=== PATIENT | female | born 1935 | race Caucasian/White ===

== ENCOUNTER 2016-11-26 15:07 | Observation (INO) | payer OTHER ==
[~2016-11-26] VITALS: Ht 157.5 cm; Wt 60.0 kg
[2016-11-26] VITALS (7 sets, daily range): BP systolic 170–220; BP diastolic 77–115; PULSE 64–80; RESP 16–20; TEMP 97.5–98; O2SAT 93–99
[2016-11-26] MEDS ORDERED: SIMV20TA PO (15:19)
[2016-11-26] MEDS ORDERED: ASPI81CH CHEW (15:19)
[2016-11-26] MEDS ORDERED: MULTCAP (15:19)
--- NOTE | 2016-11-26 15:27 | PD ---
HPI Chief Complaint: Cardiac Complaint Time Seen by Provider: 15:24 Travel History International Travel<30 days: No Contact w/Intl Traveler<30days: No Traveled to known affect area: No History of Present Illness HPI 81-year-old female with history of breast cancer sent in from radiation oncology for slow heart rate. While receiving radiation therapy today patient' s heart rate was noted to be in the 30s. An EKG was performed that shows bigeminy with a very slow ventricular rate. Patient states that she is completely is symptomatic. No chest pain or dyspnea. No lightheadedness or weakness. No paresthesias or motor deficits. Upon arrival to the emergency Department in another EKG was performed and shows sinus with a rate of 81 with one PVC. She is not on any beta blockers or calcium channel blockers. PFSH Past Medical History Cancer: Yes (BREAST ) Radiation Therapy: Yes Influenza Vaccination: Yes Past Surgical History Tonsillectomy: Yes Other Surgery: Yes (R. L. BREAST LUMPECTOMY ) Social History Alcohol Use: Yes (1 RED WINE DAILY ) Tobacco Use: No Substance Use: No Allergies-Medications (Allergen,Severity, Reaction): Coded Allergies: No Known Allergies (Unverified , 11/26/16) Reported Meds & Prescriptions Reported Meds & Active Scripts Active Reported Aspirin 81 Mg Chew 81 Mg CHEW DAILY Multi For Her (Multiple Vitamins W/ Minerals) 1 Cap Cap Simvastatin 20 Mg Tab 30 Mg PO HS Review of Systems Except as stated in HPI: all other systems reviewed are Neg Physical Exam Narrative GENERAL: Pleasant, well-developed, well-nourished, no acute distress SKIN: Warm and dry. HEAD: Atraumatic. Normocephalic. EYES: Pupils equal and round. No scleral icterus. No injection or drainage. ENT: Mucous membranes pink and moist. NECK: Trachea midline. No JVD. CARDIOVASCULAR: Regular rate and rhythm. Distal pulses brisk and equal bilaterally. RESPIRATORY: No accessory muscle use. Clear to auscultation. Breath sounds equal bilaterally. GASTROINTESTINAL: Abdomen soft, non-tender, nondistended. MUSCULOSKELETAL: No obvious deformities. No clubbing. No cyanosis. No edema. NEUROLOGICAL: Awake and alert. No obvious cranial nerve deficits. Motor grossly within normal limits. Normal speech. PSYCHIATRIC: Appropriate mood and affect; insight and judgment normal. Data Data Last Documented VS Vital Signs Date Time Temp Pulse Resp B/P Pulse Ox O2 Delivery O2 Flow Rate FiO2 11/26/16 15:34 99 Room Air 11/26/16 15:12 98.0 80 20 184/115 Orders Electrocardiogram (11/26/16 ) Basic Metabolic Panel (Bmp) (11/26/16 15:24) Ckmb (Isoenzyme) Profile (11/26/16 15:24) Complete Blood Count With Diff (11/26/16 15:24) Magnesium (Mg) (11/26/16 15:24) Prothrombin Time / Inr (Pt) (11/26/16 15:24) Act Partial Throm Time (Ptt) (11/26/16 15:24) Troponin I (11/26/16 15:24) Chest, Single Ap (11/26/16 15:24) Ecg Monitoring (11/26/16 15:24) Iv Access Insert/Monitor (11/26/16 15:24) Oximetry (11/26/16 15:24) Sodium Chloride 0.9% Flush (Ns Flush) (11/26/16 15:30) Labs Laboratory Tests Test 11/26/16 15:27 White Blood Count 5.8 TH/MM3 Red Blood Count 4.89 MIL/MM3 Hemoglobin 15.7 GM/DL Hematocrit 45.9 % Mean Corpuscular Volume 93.8 FL Mean Corpuscular Hemoglobin 32.1 PG Mean Corpuscular Hemoglobin 34.2 % Concent Red Cell Distribution Width 14.0 % Platelet Count 190 TH/MM3 Mean Platelet Volume 10.3 FL Neutrophils (%) (Auto) 63.8 % Lymphocytes (%) (Auto) 17.4 % Monocytes (%) (Auto) 12.8 % Eosinophils (%) (Auto) 4.8 % Basophils (%) (Auto) 1.2 % Neutrophils # (Auto) 3.7 TH/MM3 Lymphocytes # (Auto) 1.0 TH/MM3 Monocytes # (Auto) 0.7 TH/MM3 Eosinophils # (Auto) 0.3 TH/MM3 Basophils # (Auto) 0.1 TH/MM3 CBC Comment DIFF FINAL Differential Comment Prothrombin Time 10.2 SEC Prothromb Time International 0.9 RATIO Ratio Activated Partial 25.0 SEC Thromboplast Time Sodium Level 142 MEQ/L Potassium Level 4.1 MEQ/L Chloride Level 104 MEQ/L Carbon Dioxide Level 32.0 MEQ/L Anion Gap 6 MEQ/L Blood Urea Nitrogen 17 MG/DL Creatinine 0.86 MG/DL Estimat Glomerular Filtration 63 ML/MIN Rate Random Glucose 83 MG/DL Calcium Level 9.9 MG/DL Magnesium Level 2.6 MG/DL Total Creatine Kinase 92 U/L Troponin I LESS THAN 0.02 NG/ML MDM Medical Decision Making Medical Screen Exam Complete: Yes Emergency Medical Condition: Yes Medical Record Reviewed: Yes Differential Diagnosis Sinus bradycardia, sick sinus syndrome, electrolyte abnormality Narrative Course Initial vital signs show heart rate 68, blood pressure 220/90, pulse ox 99% on room air, oral temp of 97.5F. Repeat blood pressure without any intervention was 184/115. CBC is unremarkable. BMP is unremarkable. Cardiac enzymes are negative. Case discussed with on-call livestock nutritionist Dr. Greenwood who reviewed the patient' s EKG showing bigeminy with a very slow ventricular rate. He recommends admitting the patient for overnight telemetry monitoring. Case discussed with hospitalist Dr. Bruce who will admit the patient to his service. The patient and the patient's significant other were made aware of all findings and plan for admission. Diagnosis Primary Impression: Bradycardia Admitting Information Admitting Physician Requests: Observation Ahsan Troncoso MD Nov 26, 2016 15:27
[2016-11-26] MEDS ORDERED: SODIUM CHLORIDE 0.9% FLUSH 5 ML FLUSH IVF PRN (15:30)
--- NOTE | 2016-11-26 15:59 | RADRPT ---
EXAM DATE/TIME: 11/26/2016 15:40 [facility] COMPARISON: No previous studies available for comparison. INDICATIONS : Low pulse sent by Oncology. MEDICAL HISTORY : Carcinoma, breast. SURGICAL HISTORY : lumpectomy bilateral breast, being treated for breast cancer now ENCOUNTER: Initial ACUITY: 1 day PAIN SCORE: 0/10 LOCATION: Bilateral chest FINDINGS: A single view of the chest demonstrates the lungs to be symmetrically aerated without evidence of mas s, infiltrate or effusion. The cardiomediastinal contours are unremarkable. Osseous structures are intact. CONCLUSION: No acute disease. Hoang Duarte MD on November 26, 2016 at 15:58 Board Certified Radiologist. This report was verified electronically.
[2016-11-26 16:01] LABS: AUTOMATED NEUTROPHIL # 3.7 TH/MM3 (1.8-7.7); BASOPHIL # 0.1 TH/MM3 (0-0.2); BASOPHIL % 1.2 % (0.0-2.0); EOSINOPHIL # 0.3 TH/MM3 (0-0.4); EOSINOPHIL % 4.8 % (0.0-4.0); HEMATOCRIT 45.9 % (35.0-46.0); HEMO FLAGS DIFF FINAL; LYMPH % 17.4 % (9.0-44.0); MEAN CELL VOLUME 93.8 FL (80.0-100.0); MEAN CORPUSCULAR HEMOGLOBIN 32.1 PG (27.0-34.0); MEAN CORPUSCULAR HGB CONC 34.2 % (32.0-36.0); MONO % 12.8 % (0.0-8.0); NEUT % 63.8 % (16.0-70.0); PLATELET COUNT 190 TH/MM3 (150-450); RED BLOOD COUNT 4.89 MIL/MM3 (4.00-5.30); WHITE BLOOD COUNT 5.8 TH/MM3 (4.0-11.0)
[2016-11-26 16:06] LABS: INTERNATIONAL NORMALIZED RATIO 0.9 RATIO; PROTHROMBIN TIME - PATIENT 10.2 SEC (9.8-11.6)
[2016-11-26 16:25] LABS: ANION GAP 6 MEQ/L (5-15); BLOOD UREA NITROGEN 17 MG/DL (7-18); CHLORIDE 104 MEQ/L (98-107); GLOMERULAR FILTRATION RATE 63 ML/MIN (>89); MAGNESIUM 2.6 MG/DL (1.5-2.5); POTASSIUM 4.1 MEQ/L (3.5-5.1); SODIUM (NA) 142 MEQ/L (136-145)
[2016-11-26 16:28] LABS: CREATINE KINASE 92 U/L (26-192)
--- NOTE | 2016-11-26 18:28 | HHI.HP ---
[facility] Service [facility] Primary Care Physician Carrie Flowers MD Admission Diagnosis bradycardia Diagnoses: Chief Complaint: bradycardia Travel History International Travel<30 Days: No Contact w/Intl Traveler <30 Da: No Traveled to Known Affected Are: No History of Present Illness 81-year-old female with history of breast cancer s/p R breast lumpectomy/ radiation 2001, now again left breast cancer s/p recent lumpectomy 2015 and started radiation, presents with bradycardia. The patient reports she completed her radiation treatment today, then went to meet with her radiation oncologist Dr. Ruiz when they found her heart to be around 30-31. EKG showed bigeminy with slow ventricular response. The patient is asymptomatic, denies feeling any lightheadedness, chest pain, palpations, or shortness of breath. She denies any history of bradycardia or any prior heart problems. She does not take any beta blockers or calcium channel blockers. Upon arrival to the ED, EKG showed sinus rhythm, rate 81, with 1 PVC. Heart rate now consistently in the 70s-80s. Cardiology Dr. Greenwood contacted from the ER who recommended observation overnight. Blood pressure also noted to be elevated in the ED, the patient reports her blood pressure is typically very low. She has no other medical complaints at this time. Review of Systems Constitutional: DENIES: Diaphoretic episodes, Fever, Chills, Dizziness Endocrine: DENIES: Polydipsia, Polyuria, Polyphagia Eyes: DENIES: Blurred vision, Eye pain, Double Vision Ears, nose, mouth, throat: DENIES: Throat pain, Ear Pain, Running Nose, Odynophagia Respiratory: DENIES: Cough, Shortness of breath Cardiovascular: DENIES: Chest pain, Palpitations, Dyspnea on Exertion, Lower Extremity Edema, Orthopnea Gastrointestinal: DENIES: Abdominal pain, Constipation, Diarrhea, Nausea, Vomiting Genitourinary: DENIES: Urinary frequency, Urgency, Dysuria Musculoskeletal: DENIES: Joint pain, Back pain, Neck pain Integumentary: DENIES: Abnormal pigmentation, Pruritus, Rash Hematologic/lymphatic: DENIES: Bruising, Lymphadenopathy Immunologic/allergic: DENIES: Eczema, Urticaria Neurologic: DENIES: Abnormal gait, Headache, Localized weakness, Paresthesias, Poor Balance Psychiatric: DENIES: Anxiety, Depression Past Family Social History Past Medical History hyperlipidemia right breast cancer s/p lumpectomy/radiation in 2001 new left breast cancer s/p lumpectomy 2016, now on radiation Past Surgical History right breast lumpectomy 2001 left breast lumpectomy 2016 tonsillectomy Reported Medications Aspirin 81mg daily, statin, multivitamin Allergies: Coded Allergies: No Known Allergies (Unverified , 11/26/16) Active Ordered Medications Current Medications Medications (Trade) Dose Ordered Sig/Jayson Route Start Time Stop Time Status Last Admin (NS Flush) 2 ml UNSCH PRN IVF 11/26/16 15:30 Family History Father with unknown cancer Mother with unknown medical problems Social History Smoked tobacco on the weekends in college however no other tobacco use Drinks 1 glass of wine most nights with dinner Denies any illicit drug use Physical Exam Vital Signs Vital Signs Date Time Temp Pulse Resp B/P Pulse Ox O2 Delivery O2 Flow Rate FiO2 11/26/16 15:34 99 Room Air 11/26/16 15:12 98.0 80 20 184/115 99 11/26/16 15:08 97.5 68 16 220/90 93 Room Air Physical Exam GENERAL: Well-nourished, well-developed pleasant elderly female patient in [facility]. SKIN: Warm and dry. No rash. HEAD: Normocephalic. Atraumatic. EYES: Pupils equal and round. No scleral icterus. No injection or drainage. ENT: No nasal bleeding or discharge. Mucous membranes pink and moist. NECK: Supple. Trachea midline. CARDIOVASCULAR: Regular rate and rhythm with occasional PVC. S1, S2 noted. No murmur appreciated. RESPIRATORY: No accessory muscle use. Clear to auscultation. Breath sounds equal bilaterally. GASTROINTESTINAL: Abdomen soft, non-tender, nondistended. Normoactive bowel sounds x4. MUSCULOSKELETAL: No obvious deformities. Extremities without clubbing, cyanosis , or edema. NEUROLOGICAL: Awake and alert. No obvious cranial nerve deficits. Motor grossly within normal limits. Normal speech. PSYCHIATRIC: Appropriate mood and affect; insight and judgment normal. Laboratory Laboratory Tests Test 11/26/16 15:27 White Blood Count 5.8 Red Blood Count 4.89 Hemoglobin 15.7 Hematocrit 45.9 Mean Corpuscular Volume 93.8 Mean Corpuscular Hemoglobin 32.1 Mean Corpuscular Hemoglobin 34.2 Concent Red Cell Distribution Width 14.0 Platelet Count 190 Mean Platelet Volume 10.3 Neutrophils (%) (Auto) 63.8 Lymphocytes (%) (Auto) 17.4 Monocytes (%) (Auto) 12.8 Eosinophils (%) (Auto) 4.8 Basophils (%) (Auto) 1.2 Neutrophils # (Auto) 3.7 Lymphocytes # (Auto) 1.0 Monocytes # (Auto) 0.7 Eosinophils # (Auto) 0.3 Basophils # (Auto) 0.1 CBC Comment DIFF FINAL Differential Comment Prothrombin Time 10.2 Prothromb Time International 0.9 Ratio Activated Partial 25.0 Thromboplast Time Sodium Level 142 Potassium Level 4.1 Chloride Level 104 Carbon Dioxide Level 32.0 Anion Gap 6 Blood Urea Nitrogen 17 Creatinine 0.86 Estimat Glomerular Filtration 63 Rate Random Glucose 83 Calcium Level 9.9 Magnesium Level 2.6 Total Creatine Kinase 92 Troponin I LESS THAN 0.02 Result Diagram: 11/26/16 1527 11/26/16 1527 Imaging Last Impressions Chest X-Ray 11/26/16 1524 Signed Impressions: Service Date/Time: Saturday, November 26, 2016 15:40 - CONCLUSION: No acute disease. Hoang Duarte MD Assessment and Plan Assessment and Plan 81-year-old female with history of breast cancer s/p R breast lumpectomy/ radiation 14 years ago, now again left breast cancer s/p recent lumpectomy and started radiation, presents with bradycardia. Bigeminy with SVR/Bradycardia: HR noted to be in 30s after radiation treatment today 11/26, EKG at oncologists office showed bigeminy with slow ventricular response, patient asymptomatic. Upon arrival to the ED, EKG showed sinus rhythm , rate 81, with 1 PVC. Heart rate now consistently in the 70s-80s. Cardiology Dr. Greenwood contacted from the ER who recommended observation overnight. Electrolytes wnl. Monitor on telemetry. Continue aspirin. Consult cardiology. Hypertension: patient reports no hx of HTN, in fact BP always low per the patient. Pt appears somewhat anxious about being admitted. Started IV Vasotec prn SBP >180, DBP >100. Consider initiating lisinopril in the am if still elevated. HLD: chronic, continue patient's statin. Breast Cancer: undergoing radiation with Dr. Ruiz. Continue outpatient f/up. DVT Prophylaxis: teds/SCDs Written by Honey Lewis, acting as scribe for Dr. Bruce on 11/26/16 at 18: 27. The documentation accurately reflects the work performed [id number] by me on 11/26/16 at 1827. Discussed Condition With Patient, ER Honey Schwab PA-C Nov 26, 2016 18:28 Samuel Bruce MD Nov 26, 2016 21:54
[2016-11-26] MEDS ORDERED: DOCUSATE SODIUM 100 MG CAP PO PRN (18:30)
[2016-11-26] MEDS ORDERED: BISACODYL 10 MG SUPP PR PRN (18:30)
[2016-11-26] MEDS ORDERED: ACETAMINOPHEN 325 MG TAB PO PRN (18:30)
[2016-11-26] MEDS ORDERED: ONDANSETRON HCL 4 MG/2 ML VIAL IVP PRN (18:30)
[2016-11-26] MEDS ORDERED: NALOXONE HCL 0.4 MG/ML AMP IV PRN (18:30)
[2016-11-26] MEDS ORDERED: SODIUM CHLORIDE 0.9% FLUSH 5 ML FLUSH FLUSH PRN (18:30)
[2016-11-26] MEDS ORDERED: traMADol HCL 50 MG TAB PO PRN (18:30)
[2016-11-26] MEDS ORDERED: MAGNESIUM HYDROXIDE SUSP 30 ML CUP PO PRN (18:30)
[2016-11-26] MEDS: SODIUM CHLORIDE 0.9% FLUSH 5 ML FLUSH FLUSH SCH (21:09)
[2016-11-26] MEDS: ENALAPRILAT 1.25 MG/ML VIAL IV PUSH PRN (23:08)
[2016-11-27] VITALS (8 sets, daily range): BP systolic 130–191; BP diastolic 61–84; PULSE 52–83; RESP 16–20; TEMP 97.6–97.9; O2SAT 93–96
[2016-11-27 04:51] LABS: AUTOMATED NEUTROPHIL # 3.3 TH/MM3 (1.8-7.7); BASOPHIL # 0.1 TH/MM3 (0-0.2); BASOPHIL % 1.5 % (0.0-2.0); EOSINOPHIL # 0.3 TH/MM3 (0-0.4); HEMATOCRIT 40.5 % (35.0-46.0); HEMO FLAGS DIFF FINAL; LYMPH % 17.7 % (9.0-44.0); LYMPHOCYTE # 0.9 TH/MM3 (1.0-4.8); MEAN CELL VOLUME 94.3 FL (80.0-100.0); MEAN CORPUSCULAR HEMOGLOBIN 31.7 PG (27.0-34.0); MEAN CORPUSCULAR HGB CONC 33.6 % (32.0-36.0); MONO % 12.8 % (0.0-8.0); PLATELET COUNT 158 TH/MM3 (150-450); RED BLOOD COUNT 4.29 MIL/MM3 (4.00-5.30); RED CELL DISTRIBUTION WIDTH 14.2 % (11.6-17.2); WHITE BLOOD COUNT 5.2 TH/MM3 (4.0-11.0)
[2016-11-27 05:19] LABS: BICARBONATE 32.6 MEQ/L (21.0-32.0); POTASSIUM 3.9 MEQ/L (3.5-5.1)
[2016-11-27] MEDS: SODIUM CHLORIDE 0.9% FLUSH 5 ML FLUSH FLUSH SCH (08:19)
[2016-11-27] MEDS: ENALAPRILAT 1.25 MG/ML VIAL IV PUSH PRN (08:19)
[2016-11-27] MEDS ORDERED: LISINOPRIL 5 MG TAB PO SCH (10:00)
--- NOTE | 2016-11-27 11:07 | MB ---
cc: SURKEHA AMBROCIO DATE OF CONSULTATION: 11/27/2016 1934 REASON FOR CONSULTATION Asymptomatic bradycardia. HISTORY OF PRESENT ILLNESS 81-year-old female with no previous cardiac medical history who presented to the hospital, referred by radiation oncology in the setting of bradycardia. Her past medical history is significant for breast cancer status post right breast lumpectomy and radiation in 2001 and now again left breast cancer status post lumpectomy in 2015 and on current radiation. According to the patient she completed her radiation treatment yesterday when she was found to have a heart rate in the 30s on the monitoring tech. The EKG showed bigeminy and thus, she was referred to the emergency department for observation and cardiology evaluation. She denies chest pain, palpitations, shortness of breath, syncope, lightheadedness, dizziness, nausea, vomiting, diarrhea. REVIEW OF SYSTEMS Review of systems negative except for what is mentioned in the HPI. PAST MEDICAL HISTORY 1. Hyperlipidemia. 2. Right breast cancer status post lumpectomy and radiation in 2001. 3. Newly diagnosed left breast cancer status post lumpectomy in 2015, now on radiation treatment. PAST SURGICAL HISTORY 1. As mentioned above right and left breast lumpectomy. 2. Tonsillectomy. MEDICATION 1. Aspirin 81 mg daily. 2. Simvastatin 20 mg daily. 3. Multivitamins one tablet p.o. daily. ALLERGIES NO KNOWN DRUG ALLERGIES. FAMILY HISTORY Noncontributory. SOCIAL HISTORY She is a social drinker. She denies illicit drug use or tobacco abuse. PHYSICAL EXAMINATION VITAL SIGNS: Temperature 97.6, pulse 78, blood pressure 191/84, O2 sats 94% on room air. GENERAL: She is awake, alert, oriented x3, in no acute distress. NECK: No JVD, no carotid bruits. HEART: Regular rate and rhythm. No murmurs, rubs or gallops appreciated. LUNGS: Clear to auscultation bilaterally. No wheezes, no rhonchi, no rales. ABDOMEN: Soft, nontender, nondistended. Positive bowel sounds. EXTREMITIES: No cyanosis or edema and pulses throughout. LABORATORY VALUES CBC shows hemoglobin of 13, hematocrit of 40, platelet count 158, INR 0.9. Chemistries sodium 143, potassium 3.9, BUN 15, creatinine 0.76, calcium 8.4, magnesium 2.6, troponin less than 0.02. IMAGING STUDIES Chest x-ray shows no acute cardiopulmonary process. EKG Shows sinus rhythm with occasional PVCs and an incomplete right bundle branch block. ASSESSMENT/PLAN A 81-year-old female with history of hyperlipidemia, hypertension, presented to the emergency department with asymptomatic bradycardia in the setting of radiation therapy for left breast cancer. She has remained afebrile and hemodynamically stable. No signs of significant bradycardia on the monitoring tech. She does have PVCs with compensatory pauses and bradycardia with during sleep which is normal. She is not on AV blocking agents. Bradycardia is asymptomatic thus, at this point I would recommend a 2-D echocardiogram given her history of radiation to the heart to verify for any cardiomyopathy, treat her hypertension with either SUSAN inhibitor or a diuretic, Holter monitor upon discharge home and follow up with outpatient cardiology. RECOMMENDATIONS 1. Start an SUSAN inhibitor for blood pressure. 2. Get echocardiogram to assess LV systolic function. 3. Get Holter monitor on discharge. 4. Follow-up with a hand ii thermal cutter when discharged. Thank you for the opportunity to take part in the care of this patient. MD CLARISSA Mendoza/YRN /9:51 AM /10:43 AM MARIA ELENA
--- NOTE | 2016-11-27 12:36 | EC ---
Study Study Date:11/27/2016 STUDY CONCLUSIONS SUMMARY - Left ventricle: The cavity size was normal. Wall thickness was normal. Systolic function was normal. The estimated ejection fraction was in the range of 55% to 60%. Wall motion was normal; there were no regional wall motion abnormalities. - Aortic valve: Mildly calcified annulus. Trileaflet; normal thickness leaflets. Valve area: 1.58cm^2(VTI). Valve area: 1.56cm^2 (Vmax). - Tricuspid valve: Mild regurgitation. If LV function is below 40, please consider prescribing an ACEI or ARB or document rationale for non-use. PROCEDURE DATA STUDY STATUS: Elective. Procedure: Transthoracic echocardiography. Image quality was good. Scanning was performed from the parasternal, apical, and subcostal acoustic windows. Study completion: The patient tolerated the procedure well. Transthoracic echocardiography. M-mode, complete 2D, complete spectral Doppler, and color Doppler. Patient status: Inpatient. CARDIAC ANATOMY LEFT VENTRICLE: The cavity size was normal. Wall thickness was normal. Systolic function was normal. The estimated ejection fraction was in the range of 55% to 60%. Wall motion was normal; there were no regional wall motion abnormalities. AORTIC VALVE: Mildly calcified annulus. Trileaflet; normal thickness leaflets. Doppler: Transvalvular velocity was within the normal range. There was no stenosis. No regurgitation. Valve area: 1.58cm^2(VTI). Valve area: 1.56cm^2 (Vmax). Mean gradient: 7mm Hg (S). Peak gradient: 13mm Hg (S). AORTA: Aortic root: The aortic root was normal in size. MITRAL VALVE: Structurally normal valve. Doppler: Transvalvular velocity was within the normal range. There was no evidence for stenosis. Trace to mild regurgitation. Valve area by pressure half-time: 2.53cm^2. LEFT ATRIUM: The atrium was normal in size. RIGHT VENTRICLE: The cavity size was normal. Wall thickness was normal. PULMONIC VALVE: Doppler: Transvalvular velocity was within the normal range. There was no evidence for stenosis. No regurgitation. TRICUSPID VALVE: Structurally normal valve. Doppler: Transvalvular velocity was within the normal range. Mild regurgitation. PULMONARY ARTERY: The main pulmonary artery was normal-sized. Systolic pressure was within the normal range. RIGHT ATRIUM: The atrium was normal in size. PERICARDIUM: There was no pericardial effusion. SYSTEMIC VEINS: Inferior vena cava: The vessel was normal in size. BASIC MEASUREMENTS ADULT Normal Left ventricle LV internal dimension, ED, chordal level, *32.4 mm 43-52 PLAX LV internal dimension, ES, chordal level, 25 mm 23-38 PLAX Fractional shortening, chordal level, PLAX *23 % >29 LV posterior wall thickness, ED 12.3 mm IVS/LVPW ratio, ED 1.29 <1.3 Ventricular septum Septal thickness, ED 15.9 mm Aortic valve Leaflet separation *14 mm 15-26 Right ventricle RV internal dimension, ED, PLAX 25.7 mm 19-38 BASIC MEASUREMENTS ADULT Normal Aortic valve Leaflet separation *14 mm 15-26 Aorta Root diameter, ED 30 mm 20-37 Left atrium Anterior-posterior dimension, ES 38 mm 19-40 LA/aortic root ratio 1.27 DOPPLER MEASUREMENTS ADULT Normal Aortic valve Peak velocity, S 179 cm/s Mean velocity, S 129 cm/s VTI, S 44.2 cm Mean gradient, S 7 mm Hg Peak gradient, S 13 mm Hg Valve area, VTI 1.58 cm^2 Valve area, Vmax 1.56 cm^2 Mitral valve Pressure half-time 87 ms Valve area, pressure half-time 2.53 cm^2 LEGEND: Mean values are shown as u=mean value. Asterisk (*) zamora values outside specified normal range. Prepared and signed by Praveen Cook [id number]
--- NOTE | 2016-11-27 12:58 | HHI.PR ---
Subjective Remarks Patient reports that she is feeling great. She wants to make sure she can get to radiation scheduled for today. No shortness of breath or chest pain. She was evaluated by cardiology. Objective Vitals Vital Signs Date Time Temp Pulse Resp B/P Pulse Ox O2 Delivery O2 Flow Rate FiO2 11/27/16 11:28 97.8 54 20 156/69 94 11/27/16 10:09 57 168/72 11/27/16 07:51 83 11/27/16 07:51 97.9 78 20 191/84 94 11/27/16 04:20 56 11/27/16 04:05 97.6 56 20 159/74 95 11/27/16 03:20 59 16 130/77 99 11/27/16 03:00 97.6 52 16 136/61 93 Room Air 11/27/16 00:00 71 16 149/68 96 Room Air 11/26/16 23:00 77 20 196/112 96 Room Air 11/26/16 21:50 73 20 186/88 95 Room Air 11/26/16 19:00 64 18 170/77 96 Room Air 11/26/16 17:00 68 20 207/77 97 11/26/16 15:34 99 Room Air 11/26/16 15:12 98.0 80 20 184/115 99 11/26/16 15:08 97.5 68 16 220/90 93 Room Air Result Diagram: 11/27/16 0423 11/27/16 0423 Imaging Last Impressions Chest X-Ray 11/26/16 1524 Signed Impressions: Service Date/Time: Saturday, November 26, 2016 15:40 - CONCLUSION: No acute disease. Hoang Duarte MD Objective Remarks GENERAL: This is a well-nourished, well-developed patient, in no apparent distress. CARDIOVASCULAR: Normal rate in the 70s. Mostly regular except for occasional premature beats. No appreciable murmur. RESPIRATORY: Good respiratory efforts. Breath sounds equal and clear to auscultation bilaterally. GASTROINTESTINAL: Abdomen soft, non-tender, non-distended. Normal active bowel sounds MUSCULOSKELETAL: Extremities without cyanosis, or edema. NEURO: Alert & Oriented x4 to person, place, time, situation. Moves all ext x4 PSYCH: Appropriate mood and affect. A/P Assessment and Plan 81-year-old female with history of breast cancer s/p R breast lumpectomy/ radiation 14 years ago, now again left breast cancer s/p recent lumpectomy and started radiation, sent from the clinic for bradycardia: Asymptomatic bradycardia, PVCs with compensatory pauses: HR noted to be in 30s after radiation treatment. Patient sent to the emergency room. Radiocommunications Technician recommended observation overnight. The patient was evaluated by cardiology who recommended a 2-D echocardiogram which was unremarkable. The patient was started on an SUSAN inhibitor to treat her hypertension and a Holter monitor was placed. Hypertension: patient reports no hx of HTN, however her blood pressure has been persistently elevated and had a systolic over 200 on arrival. She was started on an SUSAN inhibitor with better controlled over blood pressure. She is advised to follow up outpatient. HLD: chronic, continue patient's statin. Breast Cancer: undergoing radiation with Dr. Ruiz. Continue outpatient f/up. Patient can resume radiation today. Patient is discharged in good condition Medications: Per med rec Activity: Regular as tolerated Diet: Heart healthy diet Follow-up with PCP and cardiology. Samuel Bruce MD Nov 27, 2016 12:58
[2016-11-27] MEDS ORDERED: LISI-519 PO (12:59)
--- NOTE | 2016-11-27 12:59 | HHI.DCPOC ---
Discharge Care Plan Diagnosis: (1) Bradycardia Goals to Promote Your Health * To prevent worsening of your condition and complications * To maintain your health at the optimal level Directions to Meet Your Goals Take your medications as prescribed Follow your dietary instruction Follow activity as directed Keep your appointments as scheduled Take your immunizations and boosters as scheduled If your symptoms worsen call your PCP, if no PCP go to Urgent Care Center or Emergency Room Smoking is Dangerous to Your Health. Avoid second hand smoke Call the 24-hour hour crisis hotline for domestic abuse at Samuel Bruce MD Nov 27, 2016 12:59
--- NOTE | 2016-11-27 18:01 | EKG ---
Date Performed: 11/26/2016 Time Performed: 15:17:05 PTAGE: 81 years EKG: Sinus rhythm WITH OCCASIONAL VENTRICULAR PREMATURE COMPLEXES INCOMPLETE RIGHT BUNDLE BRANCH BLOCK When compared t o previous tracing, premature ventricular Contractions are not as frequent. BORDERLINE ECG PREVIOUS TRACING : 11/26/2016 14.09 DOCTOR: Eddie Merida Interpretating Date/Time 11/27/2016 18:00:03
--- NOTE | 2016-11-29 13:08 | HM ---
Date Performed: 11/27/2016 Time Performed: 15:51:00 HOOKUP DATE: 11/27/16 03:51:00 PM Rose ANALYSIS START TIME: 11/27/2016 3:56:00 PM ANALYSIS END TIME: 11/28/2016 12:57:11 PM PATIENT AGE: 81 PATIENT HEIGHT PATIENT WEIGHT DRUG LIST PATIENT DIAGNOSIS: bradycardia TEST NARRATIVE: The patient's average heart rate was 74 BPM. Heart rates greater than 120 B PM were noted < 1% of the time. No episodes of bradycardia were noted. No pauses exceeding 2.0 s econds were noted. 75617 ventricular ectopics, which represented 12% of the total beat count, wer e noted. The highest ventricular ectopic frequency occurred from 09:00 AM to 10:00 AM Fri. During t his time 1401 VE(s) occurred. [place] [address] isolated beat(s) and as 43 couplet(s). No runs were noted. Some of the ventricular beats occurred in bigeminal cycles. 85 4 supraventricular ectopics, which represented 1% of the total beat count, were noted. The highest s upraventricular ectopic frequency occurred from 05:00 PM to 06:00 PM Rose. During this time 199 SVE(s ) occurred. No episodes of ST depression (defined as -1.0 mm or more) were noted in channel 1. N o episodes of ST depression (defined as -1.0 mm or more) were noted in channel 2. No episodes of ST depression (defined as -1.0 mm or more) were noted in channel 3. TEST INTERPRETATION: Holter monitor demonstrates Sinus rhythm with sinus bradycardia at 52 bpm @0523 and sinus tachycardia at 130bpm at 1900. Other frequent PAC's were noted with occasional PVC's. A PAC triplet was seen. No repetitive ventricular premeture beats were noted, No symptoms were noted by the patient. Signed by : Rashawn Morrison
== END 2016-11-27 16:12 | disposition home or self-care (01) ==
LOC: NEPC 15:07 → NEDA 16:57 → NEDH 22:01 → NEPHCDU 11-27 03:32
PROVIDERS: ADMIT Family Medicine; ATTEND Family Medicine
DX: R00.1 Bradycardia, unspecified (principal); I10 Essential (primary) hypertension; E78.5 Hyperlipidemia, unspecified; C50.912 Malignant neoplasm of unspecified site of left female breast; Z85.3 Personal history of malignant neoplasm of breast; Z92.3 Personal history of irradiation
CPT/HCPCS: 71010; 80048; 82550; 83735; 84484; 85025; 85610; 85730; 93005; 93225; 93226; 93306; 99285; G0378